=== PATIENT | male | born 1970 | race Hispanic/Latino ===

== ENCOUNTER 2020-04-07 19:02 | Emergency (ER) | payer OTHER ==
[2020-04-07] MEDS ORDERED: Acetaminophen/Codeine 30-300mg Tablet ONE (19:24)
[2020-04-07] MEDS ORDERED: Boostrix 0.5 ML (Tdap) VIAL ONE (19:24)
[2020-04-07] MEDS ORDERED: Bacitracin 1 PK ONE (20:09)
== END 2020-04-07 20:45 | disposition short-term general hospital (02) ==
LOC: NAV ERS 19:02
DX: T23.241A Burn of second degree of multiple right fingers (nail), including thumb, initial encounter (principal); T22.111A Burn of first degree of right forearm, initial encounter; T20.10XA Burn of first degree of head, face, and neck, unspecified site, initial encounter; T23.291A Burn of second degree of multiple sites of right wrist and hand, initial encounter; T31.0 Burns involving less than 10% of body surface; X08.8XXA Exposure to other specified smoke, fire and flames, initial encounter; Z23 Encounter for immunization
CPT/HCPCS: 16025; 90471; 90715